=== PATIENT | male | born 2000 | race Two or more races ===

== ENCOUNTER 2021-02-15 04:59 | Emergency (ER) | payer MEDICAID ==
[~2021-02-15] VITALS: Ht 177.8 cm; Wt 77.3 kg
[2021-02-15] MEDS ORDERED: LIDOCAINE/PF 1% 2 ML VIAL IM ONE (05:45)
[2021-02-15] MEDS ORDERED: CefTRIAXone SODIUM 1 GM/VIAL IM ONE (05:45)
[2021-02-15] MEDS ORDERED: AZITHROMYCIN 500 MG TABLET PO ONE (05:45)
[2021-02-15 05:59] LABS: ANION GAP 13 mmol/L (8-16); CALCIUM, TOTAL 9.5 mg/dL (8.8-10.5); CARBON DIOXIDE 27 mmol/L (22-29); CHLORIDE 102 mmol/L (98-107); CREATININE 1.06 mg/dL (0.60-1.30); GLOMERULAR FILTR. RATE CALC > 60 mL/min (>60); GLUCOSE,RANDOM 117 mg/dL (70-110); POTASSIUM 3.6 mmol/L (3.5-5.1); SODIUM SERUM 142 mmol/L (136-145); UREA NITROGEN, BLOOD 8 mg/dL (7-18)
[2021-02-15 06:07] LABS: BASOPHILS % (AUTO) 0.5 % (0.0-2.0); EOSINOPHILS % (AUTO) 0.6 % (1.0-6.0); HEMATOCRIT 47.5 % (41-53); HEMOGLOBIN 15.7 g/dL (13.5-17.5); LYMPHOCYTES # (AUTO) 1.4 K/uL (1.0-4.8); LYMPHOCYTES % (AUTO) 9.7 % (22.0-44.0); MEAN CORPUSCULAR HEMOGLOBIN 30.5 pg (26.0-34.0); MEAN CORPUSCULAR HGB CONC 33.1 G/dL (31.0-37.0); MEAN CORPUSCULAR VOLUME 92 fL (80-100); MONOCYTES # (AUTO) 0.5 K/uL (0.1-1.0); MONOCYTES % (AUTO) 3.6 % (2.0-9.0); PLATELET COUNT (AUTO) 204 K/uL (150-450); RED BLOOD CELL COUNT(AUTO) 5.15 MIL/uL (4.50-5.90); RED CELL DISTRIBUTION WIDTH 13.3 % (11.5-14.5)
[2021-02-15 06:08] LABS: NEUTROPHILS % (AUTO) 85.6 % (40.0-70.0)
[2021-02-15 06:09] LABS: APPEARANCE,URINE CLEAR (CLEAR); BILIRUBIN,URINE NEGATIVE (NEGATIVE); GLUCOSE, URINE (UA) NEGATIVE (NEGATIVE); KETONES,URINE NEGATIVE (NEGATIVE); LEUKOCYTE ESTERASE ,URINE SMALL (NEGATIVE); NITRATE,URINE NEGATIVE (NEGATIVE); OCCULT BLOOD,URINE LARGE (NEGATIVE); PH,URINE 5.5 (5.0-8.0); PROTEIN,URINE POS 1+ (NEGATIVE); UROBILINOGEN,URINE 0.2 mg/dL (<=1.0)
[2021-02-15 06:09] LABS: ALANINE AMINOTRANSFERASE 71 U/L (12-78); ALBUMIN 4.9 g/dL (3.4-5.0); ALKALINE PHOSPHATASE 93 U/L (46-116); ASPARTATE AMINOTRANSFERASE 34 U/L (15-37); BILIRUBIN,TOTAL 0.7 mg/dL (0.1-1.0); LIPASE 74 U/L (73-393); TOTAL PROTEIN, SERUM 8.9 g/dL (6.4-8.2)
[2021-02-15 06:11] LABS: BACTERIA,URINE Few /HPF (None Seen)
[2021-02-15 06:35] VITALS: BP 125/90
[2021-02-15 06:48] LABS: COVID AG,FIA SOURCE NASOPHARYNGEAL
== END 2021-02-15 07:32 | disposition home or self-care (01) ==
LOC: EMS 05:00
DX: A63.0 Anogenital (venereal) warts (principal); R10.11 Right upper quadrant pain; Z20.2 Contact with and (suspected) exposure to infections with a predominantly sexual mode of transmission; Z20.822 Contact with and (suspected) exposure to COVID-19
CPT/HCPCS: 36415; 76700; 80053; 81001; 83690; 85025; 87426; 87491; 87591; 96372; 99284; J0696; J3490; Q9967

== ENCOUNTER 2021-02-17 21:15 | Emergency (ER) | payer MEDICAID ==
[~2021-02-17] VITALS: Ht 180.3 cm; Wt 81.5 kg
[2021-02-17 21:16] VITALS: BP 145/84
== END 2021-02-17 23:28 | disposition left against medical advice (07) ==
LOC: EMS 21:15
DX: R10.31 Right lower quadrant pain (principal); Z53.21 Procedure and treatment not carried out due to patient leaving prior to being seen by health care provider